=== PATIENT | female | born 1955 | race American Indian/Alaskan Native ===

== ENCOUNTER 2018-09-05 08:22 | Emergency (ER) | payer OTHER ==
[2018-09-05 08:27] VITALS: O2SAT 99; BMI 23.6
[2018-09-05] MEDS ORDERED: Naproxen 500 MG TAB PO STA (09:02)
--- NOTE | 2018-09-05 09:09 | ED PDOC ---
Lower Extremity Pain/Injury Time Seen by Provider: 09/05/18 08:43 Chief Complaint (Nursing): Abnormal Skin Integrity Chief Complaint (Provider): Bilateral foot discomfort History Per: Patient Onset/Duration Of Symptoms: Days (3) Current Symptoms Are (Timing): Still Present Additional History Per: Patient Additional Complaint(s): 62yo female, comes to ER reporting a burning sensation to bilateral feet and in between toes x 3 days. She states she was exposed to cleaning solutions while at the [facility] and feels her symptoms may be due to that. No additional complaints. Used benzocaine pads with no relief. Past Medical History Reviewed: Historical Data, Nursing Documentation, Vital Signs Vital Signs: Last Vital Signs Temp 97.1 F L 09/05/18 08:26 Pulse 76 09/05/18 08:26 Resp BP 140/81 09/05/18 08:26 Pulse Ox 99 09/05/18 08:26 - Surgical History Surgical History: No Surg Hx - Family History Family History: States: Unknown Family Hx - Immunization History Hx Tetanus Toxoid Vaccination: Yes Hx Influenza Vaccination: Yes Hx Pneumococcal Vaccination: Yes - Home Medications Home Medications: Ambulatory Orders Medication Instructions Recorded Erythromycin Base [Erythromycin] 500 mg PO Q6H #27 tablet 10/24/16 Naproxen [Naprosyn] 500 mg PO BID PRN #15 tablet 09/05/18 - Allergies Allergies/Adverse Reactions: Allergies Allergy/AdvReac Type Severity Reaction Status Date / Time amoxicillin Allergy ITCHING Verified 09/05/18 08:34 benzonatate Allergy ITCHING Verified 09/05/18 08:34 clavulanic acid Allergy ITCHING Verified 09/05/18 08:34 Review of Systems Musculoskeletal: Positive for: Other (bilateral foot burning) Physical Exam - Reviewed Nursing Documentation Reviewed: Yes Vital Signs Reviewed: Yes - Physical Exam Appears: Positive for: Non-toxic Skin: Positive for: Normal Color, Warm. Negative for: Rash Pulses-Dorsalis Pedis (L): 2+ Pulses-Dorsalis Pedis (R): 2+ Extremity: Positive for: Normal ROM (FROM bilateral feet), Capillary Refill (< 2 seconds), Other (chronic skin changes; no erythema, edema, signs of cellulitis or rash noted.). Negative for: Tenderness, Deformity, Swelling Neurological/Psych: Positive for: Alert, Oriented (x 3) - ECG O2 Sat by Pulse Oximetry: 99 (RA) Pulse Ox Interpretation: Normal Medical Decision Making Medical Decision Makinyo female with bilateral "foot burning" Patient advised to take naproxen as needed for pain. Instructed to follow up with podiatry clinic as well. Scribe Attestation: Documented by Daja Lawler, acting as a scribe for Princess Martins MD. Provider Scribe Attestation: All medical record entries made by the Scribe were at my direction and personally dictated by me. I have reviewed the chart and agree that the record accurately reflects my personal performance of the history, physical exam, medical decision making, and the department course for this patient. I have also personally directed, reviewed, and agree with the discharge instructions and disposition. Disposition - Clinical Impression Clinical Impression: Chemical exposure - Disposition Referrals: Podiatry Clinic [Outside] Disposition: Routine/Home Disposition Time: 09:13 Condition: STABLE Prescriptions: Naproxen [Naprosyn] 500 mg PO BID PRN #15 tablet PRN Reason: Pain, Moderate (4-7) Instructions: Chemical Exposure to the Skin (DC) Forms: [employer] (Thai)
[2018-09-05] MEDS ORDERED: Naproxen 500 MG TAB PO ONE (09:12)
[2018-09-05 09:27] VITALS: BP 138/78; PULSE 72; RESP 16; TEMP 97.3
== END 2018-09-05 09:27 | disposition home or self-care (01) ==
LOC: H.ER 08:22
DX: R21 Rash and other nonspecific skin eruption (principal); M79.672 Pain in left foot; M79.671 Pain in right foot; Z77.098 Contact with and (suspected) exposure to other hazardous, chiefly nonmedicinal, chemicals

== ENCOUNTER 2018-09-14 13:51 | Emergency (ER) | payer OTHER ==
[2018-09-14 13:51] VITALS: BMI 23.6
[2018-09-14 14:16] VITALS: BP 155/95
--- NOTE | 2018-09-14 16:19 | ED PDOC ---
Lower Extremity Pain/Injury Time Seen by Provider: 09/14/18 14:44 Chief Complaint (Nursing): Lower Extremity Problem/Injury Chief Complaint (Provider): Bilateral foot irritation History Per: Patient History/Exam Limitations: no limitations Additional Complaint(s): 62yo female, comes to ER with right foot discomfort. Deuce states she was in the group home and was exposed to a chemical used for "cleaning the shower" 1 week ago and then had bilateral foot irritation. Patient was seen in this ED 9 days ago for similar complaints, was prescribed naproxen and foot cream, but states she did not use the naproxen as she does not like pills and "ibuprofen causes me to feel high." She reports improvement of irritation on her left foot, but states the right foot discomfort is persistent. Past Medical History Reviewed: Historical Data, Nursing Documentation, Vital Signs Vital Signs: Last Vital Signs Temp Pulse Resp BP 155/95 H 09/14/18 14:13 Pulse Ox - Medical History PMH: No Chronic Diseases - Surgical History Surgical History: No Surg Hx - Family History Family History: States: No Known Family Hx, Unknown Family Hx - Immunization History Hx Tetanus Toxoid Vaccination: Yes Hx Influenza Vaccination: Yes Hx Pneumococcal Vaccination: Yes - Home Medications Home Medications: Ambulatory Orders Medication Instructions Recorded Erythromycin Base [Erythromycin] 500 mg PO Q6H #27 tablet 10/24/16 Naproxen [Naprosyn] 500 mg PO BID PRN #15 tablet 09/05/18 - Allergies Allergies/Adverse Reactions: Allergies Allergy/AdvReac Type Severity Reaction Status Date / Time amoxicillin Allergy ITCHING Verified 09/05/18 08:34 benzonatate Allergy ITCHING Verified 09/05/18 08:34 clavulanic acid Allergy ITCHING Verified 09/05/18 08:34 Review of Systems Constitutional: Negative for: Fever, Chills Musculoskeletal: Positive for: Other (right foot irritation). Negative for: Foot Pain Neurological: Negative for: Weakness, Numbness Physical Exam - Reviewed Nursing Documentation Reviewed: Yes Vital Signs Reviewed: Yes - Physical Exam Appears: Positive for: No Acute Distress Head Exam: Positive for: ATRAUMATIC, NORMAL INSPECTION, NORMOCEPHALIC Skin: Positive for: Normal Color Pulses-Dorsalis Pedis (L): 2+ Pulses-Dorsalis Pedis (R): 2+ Extremity: Positive for: Normal ROM (FROM bilateral feet), Capillary Refill (< 2 seconds), Other (inbetween 5 digits on right foot at joints, there is mild erythema. no eccymosis, deformity, blisering or scaling noted.). Negative for: Calf Tenderness, Deformity, Swelling Neurological/Psych: Positive for: Awake, Alert, Oriented (x 3) Comments: Foot: Patient noted to be wearing 3 pairs of socks. Medical Decision Making Medical Decision Makin yo female with right foot irritation Plan: -- Discussed with patient to allow her feet to be open to the air as frequently as possible. Patient appears to have irritation due to increased moisture and frequent contact between toes. No evidence of fungal or other rashes. Patient advised to take Tylenol or Motrin as needed for pain; no other medications inidicated at this time. Patient given referral for podiatry follow up. Scribe Attestation: Documented by Daja Lawler acting as a scribe for DAIANA Hemphill. Provider Scribe Attestation: All medical record entries made by the Scribe were at my direction and personally dictated by me. I have reviewed the chart and agree that the record accurately reflects my personal performance of the history, physical exam, medical decision making, and the department course for this patient. I have also personally directed, reviewed, and agree with the discharge instructions and disposition. Disposition - Clinical Impression Clinical Impression: Skin irritation - Disposition Referrals: Podiatry Clinic [Outside] Disposition: Routine/Home Disposition Time: 15:51 Condition: STABLE Additional Instructions: Would recommend removing socks and allowing feet to be open to the air as often as possible and use cotton in between toes when walking for long periods to avoid further skin irritation. Take Tylenol or Ibuprofen for pain. Forms: [employer] (Persian) Print Language: KYRGYZ
== END 2018-09-14 17:15 | disposition home or self-care (01) ==
LOC: H.ER 13:51
DX: L98.9 Disorder of the skin and subcutaneous tissue, unspecified (principal)

== ENCOUNTER 2018-09-23 12:00 | Emergency (ER) | payer OTHER ==
[2018-09-23 12:00] VITALS: BMI 23.6
[2018-09-23 12:34] VITALS: TEMP 97.7
--- NOTE | 2018-09-23 14:33 | ED PDOC ---
HPI: Neurologic - General Time Seen by Provider: 09/23/18 13:20 Chief Complaint (Nursing): Dizziness/Lightheaded Chief Complaint (Provider): dizziness Source: patient Exam Limitations: no limitations - History of Present Illness Allergies/Adverse Reactions: Allergies amoxicillin Allergy (Verified 09/23/18 12:30) ITCHING benzonatate Allergy (Verified 09/23/18 12:30) ITCHING clavulanic acid Allergy (Verified 09/23/18 12:30) ITCHING Home Medications: Ambulatory Orders Erythromycin Base [Erythromycin] 500 mg PO Q6H #27 tablet 10/24/16 Naproxen [Naprosyn] 500 mg PO BID PRN #15 tablet 09/05/18 Additional Complaint(s): 62 y/o F with no significant PMH who presents with dizziness. Pt states that she was bit by a tick 2 days ago while sitting in the park and that a friend definitely removed the tick. She has been washing the area with soap and water. Today she had an episode of dizziness after standing that persisted a couple of minutes into walking. Denies visual changes, weakness, speech disturbance, LOC. Further denies N/V, diarrhea, fever. She has been drinking normally. Past Medical History Reviewed: Historical Data, Nursing Documentation, Vital Signs Vital Signs: Last Vital Signs Temp 97.7 F 09/23/18 12:30 Pulse 73 09/23/18 12:30 Resp 16 09/23/18 12:30 BP 148/88 09/23/18 12:30 Pulse Ox 98 09/23/18 12:30 - Medical History PMH: No Chronic Diseases - Family History Family History: States: Unknown Family Hx - Immunization History Hx Tetanus Toxoid Vaccination: Yes Hx Influenza Vaccination: Yes Hx Pneumococcal Vaccination: Yes - Home Medications Home Medications: Ambulatory Orders Medication Instructions Recorded Erythromycin Base [Erythromycin] 500 mg PO Q6H #27 tablet 10/24/16 Naproxen [Naprosyn] 500 mg PO BID PRN #15 tablet 09/05/18 - Allergies Allergies/Adverse Reactions: Allergies Allergy/AdvReac Type Severity Reaction Status Date / Time amoxicillin Allergy ITCHING Verified 09/23/18 12:30 benzonatate Allergy ITCHING Verified 09/23/18 12:30 clavulanic acid Allergy ITCHING Verified 09/23/18 12:30 Review of Systems Constitutional: Negative for: Fever, Chills Cardiovascular: Positive for: Light Headedness. Negative for: Chest Pain, Palpitations Gastrointestinal: Negative for: Nausea, Vomiting, Abdominal Pain, Diarrhea Neurological: Positive for: Dizziness. 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 Negative for: Lethargic, Facial Droop - Laboratory Results Result Diagrams: 09/23/18 14:52 09/23/18 14:52 - ECG O2 Sat by Pulse Oximetry: 98 Medical Decision Making Medical Decision Making: EKG Urine dip Orthostatic BP CBC, CMP Labs wnl Orthostatics: lyin/73 HR 68; sittin/71 HR 63; Standing 142/90 HR 70. Pt noted to be dizzy when went from lying to sitting. NS 1L IV X 1 ordered. EKG: sinus, HR 55, no ischemic change or evidence of heart block. Pt re-evaluated: no longer having any dizziness. Pt instructed on slow transitions and return instructions given. Disposition - Clinical Impression Clinical Impression: Orthostasis - Patient ED Disposition Is Patient to be Admitted: No Counseled Patient/Family Regarding: Studies Performed, Diagnosis, Need For Followup - Disposition Referrals: Bertrand Hurtado MD [Staff Provider] - Disposition: Routine/Home Disposition Time: 17:50 Condition: STABLE Additional Instructions: Stay hydrated and change positions from lying to sitting and sitting to standing to allow your body time to adjust. Return to ER if your dizziness recurs or becomes more persistent or if you have trouble with your speech/vision or weakness on one side. Instructions: Orthostatic Hypotension (DC) Forms: [employer] (Divehi) Print Language: SYRIAN
[2018-09-23] MEDS ORDERED: Sodium Chloride 0.9% 1,000 ML IV STA (15:00)
[2018-09-23 15:23] LABS: BASO # 0.1 K/uL (0.0-0.2); BASO % 1.1 % (0.0-2.0); EOS # 0.1 K/uL (0.0-0.7); EOS % 1.5 % (0.0-4.0); HEMOGLOBIN 13.6 g/dL (12.0-16.0); LYMPH # 1.9 K/uL (1.0-4.3); LYMPH % 41.5 % (20.0-40.0); MEAN CELL VOLUME 89.4 fl (81.0-99.0); MEAN CORPUSCULAR HEMOGLOBIN 29.1 pg (27.0-31.0); MEAN CORPUSCULAR HGB CONC 32.6 g/dL (33.0-37.0); MEAN PLATELET VOLUME 9.7 fl (7.2-11.7); MONO # 0.3 K/uL (0.0-0.8); MONO % 6.6 % (0.0-10.0); NEUT # 2.3 K/uL (1.8-7.0); NEUT % 49.3 % (50.0-75.0); NRBC % 0.1 % (0.0-0.0); RBC 4.68 Mil/uL (3.80-5.20); RED CELL DISTRIBUTION WIDTH 13.9 % (11.5-14.5); WHITE BLOOD COUNT 4.6 K/uL (4.8-10.8)
[2018-09-23 15:59] LABS: ALB/GLOB RATIO 1.2 (1.0-2.1); ALBUMIN 3.8 g/dL (3.5-5.0); ALT/SGPT 26 U/L (9-52); AST/SGOT 61 U/L (14-36); BLOOD UREA NITROGEN 17 mg/dl (7-17); CALCIUM 9.8 mg/dL (8.4-10.2); GFR NON-AFRICAN AMERICAN > 60
[2018-09-23 19:12] VITALS: BP 137/81; PULSE 62; RESP 18
[2018-09-23 20:40] VITALS: O2SAT 98
--- NOTE | 2018-09-24 13:18 | CARD ---
APPROVED REPORT Date of service: 09/23/2018 EKG Measurement Heart [id number] <Conclusion> Sinus bradycardia Otherwise normal ECG
== END 2018-09-23 17:46 | disposition home or self-care (01) ==
LOC: H.ER 12:00
DX: I95.1 Orthostatic hypotension (principal)
CPT/HCPCS: 80053; 85025; 86617; 93005; 96360; 99285; J7030

== ENCOUNTER 2018-10-26 21:29 | Emergency (ER) | payer OTHER ==
[2018-10-26 21:29] VITALS: BMI 23.6
[2018-10-26 21:50] VITALS: BP 137/87; TEMP 98.4
--- NOTE | 2018-10-26 22:33 | ED PDOC ---
HPI: Chest Pain Time Seen by Provider: 10/26/18 21:56 Chief Complaint (Nursing): Chest Pain Chief Complaint (Provider): Chest pain History Per: Patient History/Exam Limitations: no limitations Onset/Duration Of Symptoms: Hrs (2x) Current Symptoms Are (Timing): Still Present Severity: Moderate Associated Symptoms: Dyspnea (mild) Additional Complaint(s): 62 year old female with no pertinent past medical history presents to the ED for an evaluation of chest pain that started 2x hours prior to arrival. Patient states that the chest pain began just after she ate her evening meal. Patient states that it is a mild pressure-like sensation. Patient reports having associated mild shortness of breath, and also reports having irritation to the left foot for which she was seen in the ED and prescribed med ication for, but has not taken it because she does not like to take pills. Patient denies having nausea, vomiting, or diaphoresis. PMD: Tonny Lainez MD Past Medical History Reviewed: Historical Data, Nursing Documentation, Vital Signs Vital Signs: Last Vital Signs Temp 98.4 F 10/26/18 21:45 Pulse 51 L 10/26/18 21:45 Resp 100 H 10/26/18 21:45 BP 137/87 10/26/18 21:45 Pulse Ox 100 10/26/18 21:45 MARIAJOSE Report Viewed: Yes - Medical History PMH: No Chronic Diseases - Surgical History Surgical History: No Surg Hx - Family History Family History: States: No Known Family Hx - Living Arrangements Living Arrangements: Other (homeless) - Social History Current smoker - smoking cessation education provided: No Alcohol: None Drugs: Denies - Immunization History Hx Tetanus Toxoid Vaccination: Yes Hx Influenza Vaccination: Yes Hx Pneumococcal Vaccination: Yes - Home Medications Home Medications: Ambulatory Orders Medication Instructions Recorded Erythromycin Base [Erythromycin] 500 mg PO Q6H #27 tablet 10/24/16 Naproxen [Naprosyn] 500 mg PO BID PRN #15 tablet 09/05/18 - Allergies Allergies/Adverse Reactions: Allergies Allergy/AdvReac Type Severity Reaction Status Date / Time amoxicillin Allergy ITCHING Verified 10/26/18 21:44 benzonatate Allergy ITCHING Verified 10/26/18 21:44 clavulanic acid Allergy ITCHING Verified 10/26/18 21:44 Review of Systems ROS Statement: Except As Marked, All Systems Reviewed And Found Negative Constitutional: Negative for: Other (diaphoresis) Cardiovascular: Positive for: Chest Pain (pressure-like, mild) Respiratory: Positive for: Shortness of Breath (mild) Gastrointestinal: Negative for: Nausea, Vomiting Skin: Positive for: Other (irritation to left foot) Physical Exam - Reviewed Nursing Documentation Reviewed: Yes Vital Signs Reviewed: Yes - Physical Exam Appears: Positive for: Well, Non-toxic, No Acute Distress Head Exam: Positive for: ATRAUMATIC, NORMOCEPHALIC Skin: Positive for: Normal Color, Warm, Dry Neck: Positive for: Normal, Painless ROM, Supple Cardiovascular/Chest: Positive for: Regular Rate, Rhythm, Chest Non Tender Respiratory: Positive for: Normal Breath Sounds Extremity: Positive for: Other (left foot: irritation) Neurological/Psych: Positive for: Awake, Alert, Oriented (3x) - Laboratory Results Result Diagrams: 10/26/18 22:39 10/26/18 22:39 - ECG O2 Sat by Pulse Oximetry: 100 (RA) Pulse Ox Interpretation: Normal Medical Decision Making Medical Decision Makin:56 Initial impression: 62 year old female with nonspecific chest pain Initial plan: * XRay chest 2 views * EKG * b-type natriuretic peptide * CMP * troponin I * CBC with differential * reevaluation 00:10 Labs reviewed, show no clinically significant abnormalities. Patient is medically stable, and requires no further treatment in the ED at this time. Patient will be discharged home. Counseling was provided and all questions were answered regarding diagnosis and need for follow up with PMD. There is agreement to discharge plan. Return if symptoms persist or worsen. ScribeAttestation: Documented byMarci Jimenes, acting as a scribe for Adrian Rivera MD. Provider ScribeAttestation: All medical record entries made by the Scribe were at my direction and personally dictated by me. I have reviewed the chart and agree that the record accurately reflects my personal performance of the history, physical exam, medical decision making, and the department course for this patient. I have also personally directed, reviewed, and agree with the discharge instructions and disposition. Disposition - Clinical Impression Clinical Impression: Skin irritation, Atypical chest pain - Disposition Referrals: [facility] [Outside] Podiatry Clinic [Outside] Disposition Time: 00:10 Condition: STABLE Instructions: Chest Pain That Is Not Caused by the Heart (DC) Forms: [employer] (Bengali)
[2018-10-26 23:26] LABS: EOS % 1.2 % (0.0-4.0); HEMOGLOBIN 13.2 g/dL (12.0-16.0); LYMPH # 1.1 K/uL (1.0-4.3); LYMPH % 30.4 % (20.0-40.0); MEAN CELL VOLUME 89.2 fl (81.0-99.0); MEAN CORPUSCULAR HEMOGLOBIN 29.2 pg (27.0-31.0); MEAN CORPUSCULAR HGB CONC 32.7 g/dL (33.0-37.0); MEAN PLATELET VOLUME 9.8 fl (7.2-11.7); MONO # 0.3 K/uL (0.0-0.8); MONO % 7.4 % (0.0-10.0); NEUT # 2.3 K/uL (1.8-7.0); NRBC % 0.1 % (0.0-0.0); RBC 4.53 Mil/uL (3.80-5.20); RED CELL DISTRIBUTION WIDTH 14.4 % (11.5-14.5); WHITE BLOOD COUNT 3.8 K/uL (4.8-10.8)
[2018-10-26 23:32] LABS: ALB/GLOB RATIO 1.3 (1.0-2.1); ALBUMIN 3.5 g/dL (3.5-5.0); ALT/SGPT 46 U/L (9-52); AST/SGOT 31 U/L (14-36); BLOOD UREA NITROGEN 19 mg/dl (7-17); CALCIUM 9.3 mg/dL (8.4-10.2); GFR NON-AFRICAN AMERICAN > 60
[2018-10-26 23:47] LABS: B-TYPE NATRIURETIC PEPTIDE 111 pg/ml (0-900)
[2018-10-27 00:31] VITALS: PULSE 65; RESP 17; O2SAT 99
--- NOTE | 2018-10-27 09:39 | CARD ---
APPROVED REPORT Date of service: 10/26/2018 EKG Measurement Heart [id number] <Conclusion> Sinus rhythm with frequent premature ventricular complexes in a pattern of bigeminy Anteroseptal infarct, age undetermined T wave abnormality, consider lateral ischemia Abnormal ECG
--- NOTE | 2018-10-27 13:29 | RAD ---
Date of service: 10/26/2018 HISTORY: chest pain COMPARISON: No prior. TECHNIQUE: Chest PA and lateral views FINDINGS: LUNGS: No active pulmonary disease. PLEURA: No significant pleural effusion identified. No pneumothorax apparent. CARDIOVASCULAR: No aortic atherosclerotic calcification present. Normal cardiac size. No pulmonary vascular congestion. OSSEOUS STRUCTURES: No significant abnormalities. VISUALIZED UPPER ABDOMEN: Normal. OTHER FINDINGS: None. IMPRESSION: No active disease.
== END 2018-10-26 23:45 | disposition home or self-care (01) ==
LOC: H.ER 21:29
DX: R07.89 Other chest pain (principal)